=== PATIENT | female | born 1970 | race Caucasian/White ===

== ENCOUNTER 2018-02-03 12:28 | Emergency (ER) | payer OTHER ==
[2018-02-03] MEDS: TETRACAINE 0.5% OPHTH SOLN 4ML XX (12:45)
[2018-02-03] MEDS: FLUORESCEIN OPHTH 1 MG STRIP XX (12:45)
[2018-02-03] MEDS: CIPROFLOXACIN 0.3% OPHTH SOLN 2.5ML OD (13:05)
== END 2018-02-03 13:24 | disposition home or self-care (01) ==
LOC: M ED 12:28
DX: H16.041 Marginal corneal ulcer, right eye (principal); Z88.2 Allergy status to sulfonamides; Z88.8 Allergy status to other drugs, medicaments and biological substances
CPT/HCPCS: 99283